=== PATIENT | male | born 1990 | race African-American/Black ===

== ENCOUNTER → 2022-11-07 | Outpatient (CLI) | payer OTHER | LOC: M RAD 14:10 | PROVIDERS: ATTEND Nurse Practitioner Family | DX: E05.00 Thyrotoxicosis with diffuse goiter without thyrotoxic crisis or storm (principal); Z53.9 Procedure and treatment not carried out, unspecified reason ==

== ENCOUNTER → 2022-11-14 | Outpatient (CLI) | payer OTHER | LOC: M RAD 06:57 | PROVIDERS: ATTEND Nurse Practitioner Family | DX: E05.00 Thyrotoxicosis with diffuse goiter without thyrotoxic crisis or storm (principal) | CPT/HCPCS: 78012; A9516 ==

== ENCOUNTER 2023-01-09 10:47 | Emergency (ER) | payer OTHER ==
[~2023-01-09] VITALS: Ht 180.3 cm; Wt 87.6 kg
[2023-01-09] MEDS ORDERED: CETI10CH PO (10:59)
[2023-01-09] MEDS ORDERED: METH10TA PO (10:59)
[2023-01-09] MEDS ORDERED: LIDOCAINE VISCOUS 2% SOLN 15ML UDC SS ONE (12:05)
[2023-01-09 12:24] LABS: BASO % 0.4 % (0.0-1.0); EOS # 0.3 10^3/uL (0.0-0.5); EOS % 5.1 % (0.0-3.0); HEMATOCRIT 45.4 % (42.0-52.0); HEMOGLOBIN 14.2 g/dl (13.5-17.5); LYMPH % 57.5 % (24.0-44.0); MEAN CORPUSCULAR HEMOGLOBIN 25.3 pg (27.0-33.0); MEAN CORPUSCULAR HGB CONC 31.3 g/dl (32.0-36.5); MEAN CORPUSCULAR VOLUME 80.8 fl (80.0-96.0); MONO # 0.7 10^3/uL (0.0-0.8); MONO % 13.4 % (2.0-8.0); NEUTROPHILS # 1.2 10^3/uL (1.5-8.5); NEUTROPHILS % 23.4 % (36.0-66.0); PLATELET COUNT, AUTOMATED 303 10^3/uL (150-450); RED BLOOD COUNT 5.62 10^6/uL (4.30-6.10); WHITE BLOOD COUNT 5.3 10^3/uL (4.0-10.0)
[2023-01-09 12:34] LABS: INR 0.9; PROTHROMBIN TIME 12.3 SECONDS (12.5-14.5)
[2023-01-09 12:35] LABS: PARTIAL THROMBOPLASTIN TIME 25.4 SECONDS (24.8-34.2)
[2023-01-09 12:38] LABS: D-DIMER QUANT 496.5 ng/ml (<500)
[2023-01-09 12:49] LABS: THYROXINE (T4) 17.6 UG/DL (4.5-10.9)
[2023-01-09 12:50] LABS: FREE THYROXINE INDEX 10.9 % (1.4-3.8); T UPTAKE 62.2 % (22.5-37.0); THYROID STIMULATING HORMONE 0.008 uIU/ML (0.55-4.78)
[2023-01-09] MEDS ORDERED: METH25TAB PO (13:45)
[2023-01-09 14:45] VITALS: BP 124/78
== END 2023-01-09 14:49 | disposition home or self-care (01) ==
LOC: M ED 10:47
DX: E03.9 Hypothyroidism, unspecified (principal); J02.9 Acute pharyngitis, unspecified; R53.83 Other fatigue; Z79.52 Long term (current) use of systemic steroids; Z79.83 Long term (current) use of bisphosphonates

== ENCOUNTER → 2023-02-13 | Outpatient (CLI) | payer OTHER ==
[~2023-02-13] MED LIST: CETI10CH PO; METH10TA PO; METH25TAB PO
== END ==
LOC: M PLAIMG 10:17
PROVIDERS: ATTEND Otolaryngology
DX: E05.00 Thyrotoxicosis with diffuse goiter without thyrotoxic crisis or storm (principal)

== ENCOUNTER 2023-04-01 11:10 | Inpatient (IN) | payer OTHER ==
[~2023-04-01] VITALS: Ht 180.3 cm; Wt 89.5 kg
[2023-04-01] MEDS ORDERED: LR 1,000 ML IV SCH ×2 (11:15→18:20)
[2023-04-01] MEDS ORDERED: LIDOCAINE W/EPINEPHRINE 1% 20ML VIAL As Ordered ONE (14:02)
[2023-04-01] MEDS ORDERED: LABETALOL 100MG/20ML VIAL As Ordered ONE (16:26)
[2023-04-01] MEDS ORDERED: ROCURONIUM BROMIDE 50MG/5ML VIAL As Ordered ONE ×2 (16:26→18:43)
[2023-04-01] MEDS ORDERED: HYDROmorphone HCL 2MG/ML 1ML VIAL As Ordered ONE (16:26)
[2023-04-01] MEDS ORDERED: propofoL 200 MG/20 ML VIAL As Ordered ONE ×2 (16:26→18:14)
[2023-04-01] MEDS ORDERED: PHENYLephrine 500MCG 5ML (100MCG/ML) SYRINGE As Ordered ONE (16:26)
[2023-04-01] MEDS ORDERED: SUCCINYLCHOLINE 100MG/5ML SYRINGE As Ordered ONE (16:26)
[2023-04-01] MEDS ORDERED: ACETAMINOPHEN 1000MG 100ML IV BAG As Ordered ONE (16:26)
[2023-04-01] MEDS ORDERED: LIDOCAINE 2% 100MG/5ML SDV (FOR ANES.) As Ordered ONE ×2 (16:26→18:43)
[2023-04-01] MEDS ORDERED: METOPROLOL 5 MG/5 ML VIAL As Ordered ONE (16:26)
[2023-04-01] MEDS ORDERED: ONDANSETRON 4MG 2ML VIAL As Ordered ONE (16:26)
[2023-04-01] MEDS ORDERED: fentaNYL 100 MCG/2 ML INJECTION As Ordered ONE ×5 (16:26→20:56)
[2023-04-01] MEDS ORDERED: MIDAZOLAM INJ 2MG/2ML VIAL As Ordered ONE (16:26)
[2023-04-01] MEDS ORDERED: ESMOLOL INJ 100MG/10ML VIAL As Ordered ONE (16:52)
[2023-04-01] MEDS ORDERED: oxyCODONE 5MG TAB PO PRN (18:20)
[2023-04-01] MEDS ORDERED: HYDROMORPHONE HCL 0.5 MG/ 0.5 ML SYRINGE IV PRN ×2 (18:20→20:55)
[2023-04-01] MEDS ORDERED: fentaNYL 100 MCG/2 ML INJECTION IV PRN (18:20)
[2023-04-01] MEDS ORDERED: ONDANSETRON 4MG 2ML VIAL IV PRN ×2 (18:20→20:55)
[2023-04-01] MEDS ORDERED: PROPOFOL 1,000 MG/100 ML VIAL As Ordered ONE (19:11)
[2023-04-01] MEDS ORDERED: propofoL 1,000 MG in IV 1 EA IV SCH (19:15)
[2023-04-01] MEDS ORDERED: ANEXSIA, NORCO 7.5MG/325MG TABLET(HYDROCODONE/APAP) PO PRN (20:55)
[2023-04-01] MEDS: fentaNYL 100 MCG/2 ML INJECTION IV PRN ×2 (20:59→21:17)
[2023-04-01] MEDS ORDERED: MOM 30ML SUSPENSION UDC PO PRN (21:35)
[2023-04-01 21:37] LABS: CALCIUM LEVEL 9.6 MG/DL (8.5-10.1)
[2023-04-01 21:49] LABS: PTH INTACT 12.9 PG/ML (18.5-88.0)
[2023-04-01] MEDS ORDERED: PROMETHAZINE 25MG/ML 1ML VIAL IV PRN (21:50)
[2023-04-01 22:04] LABS: HEMATOCRIT 43.9 % (42.0-52.0); HEMOGLOBIN 14.2 g/dl (13.5-17.5); MEAN CORPUSCULAR HEMOGLOBIN 25.7 pg (27.0-33.0); MEAN CORPUSCULAR HGB CONC 32.3 g/dl (32.0-36.5); MEAN CORPUSCULAR VOLUME 79.5 fl (80.0-96.0); PLATELET COUNT, AUTOMATED 322 10^3/uL (150-450); RED BLOOD COUNT 5.52 10^6/uL (4.30-6.10); WHITE BLOOD COUNT 10.7 10^3/uL (4.0-10.0)
[2023-04-01] MEDS: LR 1,000 ML IV SCH (22:15)
[2023-04-01 22:27] LABS: BLOOD UREA NITROGEN 25 MG/DL (9-23); CARBON DIOXIDE LEVEL 23 MMOL/L (20-31); CHLORIDE LEVEL 107 MMOL/L (98-107); CREATININE FOR GFR 0.89 MG/DL (0.70-1.30); GLOMERULAR FILTRATION RATE > 60.0 (>60); GLUCOSE, FASTING 134 MG/DL (60-100); POTASSIUM SERUM 4.3 MMOL/L (3.5-5.1); SODIUM LEVEL 142 MMOL/L (136-145)
[2023-04-01 22:30] VITALS: BP 143/71; TEMP 98.4; O2SAT 100
[2023-04-01 22:51] VITALS: O2SAT 100
[2023-04-01] MEDS: ceFAZolin SOD 1 GM in D5W MINI-BAG PLUS 50 ML IV SCH (23:34)
[2023-04-02] VITALS (7 sets, daily range): BP systolic 130–144; BP diastolic 61–77; TEMP 98.4–99.3; O2SAT 98–100
[2023-04-02] MEDS: metroNIDAZOLE 500 MG in IV 1 EA IV SCH ×2 (00:32→11:41)
[2023-04-02] MEDS ORDERED: CETI-24 PO (01:44)
[2023-04-02] MEDS ORDERED: HOME MED LIST COMPLETE! XX SCH (01:45)
[2023-04-02] MEDS: ceFAZolin SOD 1 GM in D5W MINI-BAG PLUS 50 ML IV SCH ×3 (06:24→22:42)
[2023-04-02] MEDS: LR 1,000 ML IV SCH (06:55)
[2023-04-02 07:04] LABS: IONIZED CALCIUM 4.6 MG/DL (4.5-5.3)
[2023-04-02 07:10] LABS: HEMATOCRIT 40.3 % (42.0-52.0); HEMOGLOBIN 13.2 g/dl (13.5-17.5); MEAN CORPUSCULAR HEMOGLOBIN 25.8 pg (27.0-33.0); MEAN CORPUSCULAR HGB CONC 32.8 g/dl (32.0-36.5); MEAN CORPUSCULAR VOLUME 78.7 fl (80.0-96.0); PLATELET COUNT, AUTOMATED 290 10^3/uL (150-450); RED BLOOD COUNT 5.12 10^6/uL (4.30-6.10); WHITE BLOOD COUNT 8.3 10^3/uL (4.0-10.0)
[2023-04-02 07:33] LABS: ALBUMIN 3.4 G/DL (3.2-5.2); ALKALINE PHOSPHATASE 82 U/L (46-116); ALT/SGPT 85 U/L (7.0-40); AST/SGOT 82 U/L (<34); BILIRUBIN,TOTAL 0.6 MG/DL (0.3-1.2); BLOOD UREA NITROGEN 18 MG/DL (9-23); CALCIUM LEVEL 10.3 MG/DL (8.5-10.1); CARBON DIOXIDE LEVEL 27 MMOL/L (20-31); CHLORIDE LEVEL 106 MMOL/L (98-107); GLOMERULAR FILTRATION RATE > 60.0 (>60); GLUCOSE, FASTING 114 MG/DL (60-100); MAGNESIUM LEVEL 1.5 MG/DL (1.8-2.4); PTH INTACT 15.5 PG/ML (18.5-88.0); SODIUM LEVEL 140 MMOL/L (136-145)
[2023-04-02] MEDS: PANTOPRAZOLE 40MG VIAL IV SCH (08:31)
[2023-04-02] MEDS: ACETAMINOPHEN TAB 650MG DOSE (2X325MG) PO PRN (20:21)
[2023-04-03] VITALS: BP 141/76; TEMP 98.9; O2SAT 99
[2023-04-03] MEDS: metroNIDAZOLE 500 MG in IV 1 EA IV SCH ×3 (00:41→23:48)
[2023-04-03] MEDS: ACETAMINOPHEN TAB 650MG DOSE (2X325MG) PO PRN ×2 (02:05→13:46)
[2023-04-03 04:27] VITALS: BP 128/58; TEMP 98.2; O2SAT 99
[2023-04-03] MEDS: LEVOTHYROXINE 137MCG TABLET (0.137MG) PO SCH (06:00)
[2023-04-03] MEDS: ceFAZolin SOD 1 GM in D5W MINI-BAG PLUS 50 ML IV SCH ×3 (06:12→21:19)
[2023-04-03 06:15] LABS: HEMATOCRIT 40.5 % (42.0-52.0); HEMOGLOBIN 13.1 g/dl (13.5-17.5); MEAN CORPUSCULAR HEMOGLOBIN 25.8 pg (27.0-33.0); MEAN CORPUSCULAR HGB CONC 32.3 g/dl (32.0-36.5); MEAN CORPUSCULAR VOLUME 79.7 fl (80.0-96.0); PLATELET COUNT, AUTOMATED 256 10^3/uL (150-450); RED BLOOD COUNT 5.08 10^6/uL (4.30-6.10); WHITE BLOOD COUNT 9.3 10^3/uL (4.0-10.0)
[2023-04-03 06:40] LABS: ALBUMIN 3.2 G/DL (3.2-5.2); ALKALINE PHOSPHATASE 75 U/L (46-116); ALT/SGPT 81 U/L (7.0-40); AST/SGOT 92 U/L (<34); BILIRUBIN,TOTAL 0.7 MG/DL (0.3-1.2); BLOOD UREA NITROGEN 10 MG/DL (9-23); CALCIUM LEVEL 10.7 MG/DL (8.5-10.1); CARBON DIOXIDE LEVEL 30 MMOL/L (20-31); CHLORIDE LEVEL 103 MMOL/L (98-107); CREATININE FOR GFR 0.58 MG/DL (0.70-1.30); GLOMERULAR FILTRATION RATE > 60.0 (>60); GLUCOSE, FASTING 103 MG/DL (60-100); POTASSIUM SERUM 4.2 MMOL/L (3.5-5.1); PTH INTACT 8.3 PG/ML (18.5-88.0); SODIUM LEVEL 139 MMOL/L (136-145); TOTAL PROTEIN 5.8 G/DL (5.7-8.2)
[2023-04-03 07:41] LABS: MAGNESIUM LEVEL 1.5 MG/DL (1.8-2.4)
[2023-04-03 08:00] VITALS: TEMP 98.7; O2SAT 99
[2023-04-03] MEDS ORDERED: BACITRACIN OINTMENT 30GM TUBE TOP STA (08:11)
[2023-04-03] MEDS: MAGNESIUM OXIDE 400MG TAB (MAG-OX) PO SCH ×2 (09:00→21:18)
[2023-04-03] MEDS: BACITRACIN OINTMENT 30GM TUBE TOP SCH ×2 (09:03→21:19)
[2023-04-03] MEDS: PANTOPRAZOLE 40MG VIAL IV SCH (09:06)
[2023-04-03 11:22] VITALS: BP 131/74; TEMP 99.7
[2023-04-03] MEDS: NS 1,000 ML IV SCH (11:49)
[2023-04-03] MEDS: ENOXAPARIN 40MG/0.4ML SYRINGE (J1650 PER 10MG) SC SCH (11:50)
[2023-04-03] MEDS ORDERED: MAG SULF 1GM/100ML (MAG RUN) 1 GM in IV 1 EA IV ONE (12:00)
[2023-04-03 14:50] LABS: ALBUMIN 3.2 G/DL (3.2-5.2); ALKALINE PHOSPHATASE 77 U/L (46-116); ALT/SGPT 78 U/L (7.0-40); AST/SGOT 82 U/L (<34); BILIRUBIN,TOTAL 0.6 MG/DL (0.3-1.2); BLOOD UREA NITROGEN 11 MG/DL (9-23); CALCIUM LEVEL 10.6 MG/DL (8.5-10.1); CARBON DIOXIDE LEVEL 30 MMOL/L (20-31); CHLORIDE LEVEL 102 MMOL/L (98-107); GLOMERULAR FILTRATION RATE > 60.0 (>60); GLUCOSE, FASTING 121 MG/DL (60-100); PHOSPHORUS LEVEL 3.9 MG/DL (2.5-4.9); POTASSIUM SERUM 4.1 MMOL/L (3.5-5.1); SODIUM LEVEL 138 MMOL/L (136-145)
[2023-04-03 16:00] VITALS: BP 116/58; TEMP 99.1; O2SAT 99
[2023-04-03 18:18] LABS: ALBUMIN 3.2 G/DL (3.2-5.2); ALKALINE PHOSPHATASE 78 U/L (46-116); ALT/SGPT 64 U/L (7.0-40); AST/SGOT 49 U/L (<34); BILIRUBIN,TOTAL 0.5 MG/DL (0.3-1.2); BLOOD UREA NITROGEN 11 MG/DL (9-23); CALCIUM LEVEL 9.6 MG/DL (8.5-10.1); CARBON DIOXIDE LEVEL 29 MMOL/L (20-31); CHLORIDE LEVEL 103 MMOL/L (98-107); CREATININE FOR GFR 0.59 MG/DL (0.70-1.30); GLOMERULAR FILTRATION RATE > 60.0 (>60); GLUCOSE, FASTING 123 MG/DL (60-100); POTASSIUM SERUM 3.9 MMOL/L (3.5-5.1); SODIUM LEVEL 139 MMOL/L (136-145)
[2023-04-03 20:44] VITALS: BP 140/76; TEMP 99.6; O2SAT 98
[2023-04-04] VITALS (7 sets, daily range): BP systolic 139–152; BP diastolic 66–81; TEMP 98.3–99.2; O2SAT 94–99
[2023-04-04] MEDS: NS 1,000 ML IV SCH ×4 (01:45→22:52)
[2023-04-04] MEDS: ACETAMINOPHEN TAB 650MG DOSE (2X325MG) PO PRN (03:53)
[2023-04-04] MEDS: LEVOTHYROXINE 137MCG TABLET (0.137MG) PO SCH (06:25)
[2023-04-04] MEDS: ceFAZolin SOD 1 GM in D5W MINI-BAG PLUS 50 ML IV SCH ×3 (06:26→21:57)
[2023-04-04] MEDS: ENOXAPARIN 40MG/0.4ML SYRINGE (J1650 PER 10MG) SC SCH (10:04)
[2023-04-04] MEDS: BACITRACIN OINTMENT 30GM TUBE TOP SCH ×2 (10:04→20:31)
[2023-04-04] MEDS: MAGNESIUM OXIDE 400MG TAB (MAG-OX) PO SCH ×2 (10:04→20:31)
[2023-04-04] MEDS: metroNIDAZOLE 500 MG in IV 1 EA IV SCH ×2 (10:04→22:52)
[2023-04-04] MEDS: RAMELTEON 8 MG TAB (ROZEREM) PO SCH (20:30)
[2023-04-05] VITALS (8 sets, daily range): BP systolic 123–138; BP diastolic 69–93; TEMP 96.9–99; O2SAT 96–100
[2023-04-05 04:59] LABS: HEMATOCRIT 40.2 % (42.0-52.0); HEMOGLOBIN 13.2 g/dl (13.5-17.5); MEAN CORPUSCULAR HGB CONC 32.8 g/dl (32.0-36.5); MEAN CORPUSCULAR VOLUME 79.1 fl (80.0-96.0); PLATELET COUNT, AUTOMATED 256 10^3/uL (150-450); RED BLOOD COUNT 5.08 10^6/uL (4.30-6.10); WHITE BLOOD COUNT 6.4 10^3/uL (4.0-10.0)
[2023-04-05 05:27] LABS: ALKALINE PHOSPHATASE 74 U/L (46-116); ALT/SGPT 61 U/L (7.0-40); AST/SGOT 37 U/L (<34); BILIRUBIN,TOTAL 0.4 MG/DL (0.3-1.2); BLOOD UREA NITROGEN 14 MG/DL (9-23); CALCIUM LEVEL 9.5 MG/DL (8.5-10.1); CARBON DIOXIDE LEVEL 28 MMOL/L (20-31); CHLORIDE LEVEL 104 MMOL/L (98-107); CREATININE FOR GFR 0.61 MG/DL (0.70-1.30); GLOMERULAR FILTRATION RATE > 60.0 (>60); GLUCOSE, FASTING 119 MG/DL (60-100); MAGNESIUM LEVEL 1.5 MG/DL (1.8-2.4); POTASSIUM SERUM 3.9 MMOL/L (3.5-5.1); SODIUM LEVEL 139 MMOL/L (136-145); TOTAL PROTEIN 5.8 G/DL (5.7-8.2)
[2023-04-05] MEDS: LEVOTHYROXINE 137MCG TABLET (0.137MG) PO SCH (05:37)
[2023-04-05] MEDS: ceFAZolin SOD 1 GM in D5W MINI-BAG PLUS 50 ML IV SCH ×2 (05:37→14:25)
[2023-04-05] MEDS ORDERED: MAG SULF 1GM/100ML (MAG RUN) 1 GM in IV 1 EA IV ONE (06:00)
[2023-04-05] MEDS: ENOXAPARIN 40MG/0.4ML SYRINGE (J1650 PER 10MG) SC SCH (08:38)
[2023-04-05] MEDS: MAGNESIUM OXIDE 400MG TAB (MAG-OX) PO SCH ×2 (08:38→22:35)
[2023-04-05] MEDS: BACITRACIN OINTMENT 30GM TUBE TOP SCH ×2 (08:38→22:36)
[2023-04-05] MEDS: metroNIDAZOLE 500 MG in IV 1 EA IV SCH (12:21)
[2023-04-05] MEDS: RAMELTEON 8 MG TAB (ROZEREM) PO SCH (22:35)
[2023-04-05] MEDS: AUGMENTIN 500MG TAB PO SCH (22:35)
[2023-04-06 04:37] VITALS: BP 140/70; TEMP 97.9; O2SAT 96
[2023-04-06] MEDS: LEVOTHYROXINE 137MCG TABLET (0.137MG) PO SCH (05:47)
[2023-04-06 06:02] LABS: HEMATOCRIT 42.4 % (42.0-52.0); HEMOGLOBIN 13.8 g/dl (13.5-17.5); MEAN CORPUSCULAR HEMOGLOBIN 25.7 pg (27.0-33.0); MEAN CORPUSCULAR HGB CONC 32.5 g/dl (32.0-36.5); PLATELET COUNT, AUTOMATED 301 10^3/uL (150-450); RED BLOOD COUNT 5.37 10^6/uL (4.30-6.10); WHITE BLOOD COUNT 6.9 10^3/uL (4.0-10.0)
[2023-04-06 06:22] LABS: ALBUMIN 3.3 G/DL (3.2-5.2); ALKALINE PHOSPHATASE 78 U/L (46-116); ALT/SGPT 84 U/L (7.0-40); AST/SGOT 56 U/L (<34); BILIRUBIN,TOTAL 0.5 MG/DL (0.3-1.2); BLOOD UREA NITROGEN 11 MG/DL (9-23); CALCIUM LEVEL 9.7 MG/DL (8.5-10.1); CARBON DIOXIDE LEVEL 26 MMOL/L (20-31); CHLORIDE LEVEL 105 MMOL/L (98-107); CREATININE FOR GFR 0.67 MG/DL (0.70-1.30); GLOMERULAR FILTRATION RATE > 60.0 (>60); GLUCOSE, FASTING 103 MG/DL (60-100); POTASSIUM SERUM 3.9 MMOL/L (3.5-5.1); SODIUM LEVEL 141 MMOL/L (136-145); TOTAL PROTEIN 6.1 G/DL (5.7-8.2)
[2023-04-06 07:48] VITALS: BP 132/76; TEMP 97.3; O2SAT 99
[2023-04-06] MEDS: AUGMENTIN 500MG TAB PO SCH ×2 (09:05→20:53)
[2023-04-06] MEDS: BACITRACIN OINTMENT 30GM TUBE TOP SCH ×2 (09:06→20:53)
[2023-04-06] MEDS: ENOXAPARIN 40MG/0.4ML SYRINGE (J1650 PER 10MG) SC SCH (09:06)
[2023-04-06] MEDS: MAGNESIUM OXIDE 400MG TAB (MAG-OX) PO SCH ×2 (09:06→20:53)
[2023-04-06 16:51] VITALS: BP 144/78; TEMP 98.1; O2SAT 98
[2023-04-06 19:27] VITALS: BP 128/59; TEMP 97.7; O2SAT 99
[2023-04-06] MEDS: RAMELTEON 8 MG TAB (ROZEREM) PO SCH (20:53)
[2023-04-06 23:10] VITALS: BP 141/81; TEMP 97.9; O2SAT 100
[2023-04-07 03:26] VITALS: BP 103/55; TEMP 97.5; O2SAT 98
[2023-04-07 05:44] LABS: HEMATOCRIT 46.1 % (42.0-52.0); HEMOGLOBIN 14.9 g/dl (13.5-17.5); MEAN CORPUSCULAR HEMOGLOBIN 25.5 pg (27.0-33.0); MEAN CORPUSCULAR HGB CONC 32.3 g/dl (32.0-36.5); MEAN CORPUSCULAR VOLUME 78.8 fl (80.0-96.0); PLATELET COUNT, AUTOMATED 331 10^3/uL (150-450); RED BLOOD COUNT 5.85 10^6/uL (4.30-6.10); WHITE BLOOD COUNT 7.2 10^3/uL (4.0-10.0)
[2023-04-07] MEDS: LEVOTHYROXINE 137MCG TABLET (0.137MG) PO SCH (06:04)
[2023-04-07 06:14] LABS: ALBUMIN 3.7 G/DL (3.2-5.2); ALKALINE PHOSPHATASE 89 U/L (46-116); ALT/SGPT 150 U/L (7.0-40); AST/SGOT 102 U/L (<34); BILIRUBIN,TOTAL 0.4 MG/DL (0.3-1.2); BLOOD UREA NITROGEN 12 MG/DL (9-23); CALCIUM LEVEL 10.3 MG/DL (8.5-10.1); CARBON DIOXIDE LEVEL 24 MMOL/L (20-31); CHLORIDE LEVEL 106 MMOL/L (98-107); CREATININE FOR GFR 0.68 MG/DL (0.70-1.30); GLOMERULAR FILTRATION RATE > 60.0 (>60); GLUCOSE, FASTING 103 MG/DL (60-100); MAGNESIUM LEVEL 1.7 MG/DL (1.8-2.4); POTASSIUM SERUM 3.9 MMOL/L (3.5-5.1); SODIUM LEVEL 142 MMOL/L (136-145)
[2023-04-07 07:30] VITALS: BP 132/81; TEMP 97.2; O2SAT 100
[2023-04-07] MEDS ORDERED: MAG SULF 1GM/100ML (MAG RUN) 1 GM in IV 1 EA IV ONE (08:00)
[2023-04-07] MEDS: AUGMENTIN 500MG TAB PO SCH ×2 (09:19→20:50)
[2023-04-07] MEDS: MAGNESIUM OXIDE 400MG TAB (MAG-OX) PO SCH ×3 (09:20→20:50)
[2023-04-07] MEDS: BACITRACIN OINTMENT 30GM TUBE TOP SCH ×2 (09:20→20:51)
[2023-04-07] MEDS: ENOXAPARIN 40MG/0.4ML SYRINGE (J1650 PER 10MG) SC SCH (09:20)
[2023-04-07 11:34] VITALS: BP 129/80; TEMP 97.3; O2SAT 99
[2023-04-07 15:43] VITALS: BP 123/81; TEMP 97.5; O2SAT 98
[2023-04-07 19:35] VITALS: BP 120/66; TEMP 97.7; O2SAT 98
[2023-04-07] MEDS: RAMELTEON 8 MG TAB (ROZEREM) PO SCH (20:50)
[2023-04-07 23:33] VITALS: BP 132/63; TEMP 97.5; O2SAT 98
[2023-04-08 03:37] VITALS: BP 131/73; TEMP 96.9; O2SAT 97
[2023-04-08] MEDS: LEVOTHYROXINE 137MCG TABLET (0.137MG) PO SCH (06:09)
[2023-04-08 07:18] LABS: HEMOGLOBIN 14.2 g/dl (13.5-17.5); MEAN CORPUSCULAR HEMOGLOBIN 25.6 pg (27.0-33.0); MEAN CORPUSCULAR HGB CONC 32.3 g/dl (32.0-36.5); MEAN CORPUSCULAR VOLUME 79.3 fl (80.0-96.0); PLATELET COUNT, AUTOMATED 322 10^3/uL (150-450); RED BLOOD COUNT 5.55 10^6/uL (4.30-6.10); WHITE BLOOD COUNT 7.8 10^3/uL (4.0-10.0)
[2023-04-08 07:48] LABS: ALBUMIN 3.3 G/DL (3.2-5.2); ALKALINE PHOSPHATASE 81 U/L (46-116); ALT/SGPT 138 U/L (7.0-40); AST/SGOT 67 U/L (<34); BILIRUBIN,TOTAL 0.3 MG/DL (0.3-1.2); BLOOD UREA NITROGEN 11 MG/DL (9-23); CALCIUM LEVEL 10.5 MG/DL (8.5-10.1); CARBON DIOXIDE LEVEL 25 MMOL/L (20-31); CHLORIDE LEVEL 106 MMOL/L (98-107); CREATININE FOR GFR 0.67 MG/DL (0.70-1.30); GLOMERULAR FILTRATION RATE > 60.0 (>60); GLUCOSE, FASTING 90 MG/DL (60-100); POTASSIUM SERUM 3.9 MMOL/L (3.5-5.1); SODIUM LEVEL 140 MMOL/L (136-145); TOTAL PROTEIN 6.5 G/DL (5.7-8.2)
[2023-04-08 08:01] VITALS: BP 140/83; TEMP 97.1; O2SAT 99
[2023-04-08] MEDS: ENOXAPARIN 40MG/0.4ML SYRINGE (J1650 PER 10MG) SC SCH (09:00)
[2023-04-08] MEDS: AUGMENTIN 500MG TAB PO SCH (09:22)
[2023-04-08] MEDS: MAGNESIUM OXIDE 400MG TAB (MAG-OX) PO SCH (09:22)
[2023-04-08] MEDS ORDERED: BACITRACIN OINTMENT 30GM TUBE TOP SCH (09:27)
[2023-04-08 11:52] VITALS: BP 142/81; TEMP 97.6; O2SAT 98
[2023-04-08] MEDS ORDERED: SYNT137T7 PO (14:33)
[2023-04-08] MEDS ORDERED: MAGN400T2 PO (14:33)
[2023-04-08] MEDS ORDERED: ACET1TAB55 PO (14:33)
[2023-04-08] MEDS ORDERED: AUGM500T34 PO (14:33)
[2023-04-08] MEDS ORDERED: PROB250C PO (14:33)
== END 2023-04-08 15:33 | disposition home health service (06) | DRG 13 ==
LOC: M SDC 11:10 → M ED INP 21:03 → M ICU 22:13 → M PCU 04-05 17:16
PROVIDERS: ADMIT Family Medicine; ATTEND Internal Medicine
PROC: 0GTK0ZZ Resection of Thyroid Gland, Open Approach (ICD-10-PCS; 2023-04-01)
PROC: 0B110F4 Bypass Trachea to Cutaneous with Tracheostomy Device, Open Approach (ICD-10-PCS; principal; 2023-04-01 12:50)
DX: E05.00 Thyrotoxicosis with diffuse goiter without thyrotoxic crisis or storm (principal); K21.9 Gastro-esophageal reflux disease without esophagitis; F41.9 Anxiety disorder, unspecified; F32.A Depression, unspecified; E83.42 Hypomagnesemia; E83.51 Hypocalcemia; J38.3 Other diseases of vocal cords; Z79.899 Other long term (current) drug therapy; R06.1 Stridor; F17.200 Nicotine dependence, unspecified, uncomplicated; L30.9 Dermatitis, unspecified; E89.0 Postprocedural hypothyroidism

== ENCOUNTER → 2023-04-25 | Outpatient (CLI) | payer OTHER ==
[~2023-04-25] MED LIST changes: +ACET1TAB55 PO; +AUGM500T34 PO; +CETI-24 PO; +MAGN400T2 PO; +PROB250C PO; +SYNT137T7 PO
[2023-04-25 17:15] LABS: THYROID STIMULATING HORMONE 0.008 uIU/ML (0.55-4.78)
[2023-04-25 17:16] LABS: FREE T4 0.85 NG/DL (0.89-1.76)
== END ==
LOC: M LAB 15:50
PROVIDERS: ATTEND Otolaryngology
DX: R53.83 Other fatigue (principal)

== ENCOUNTER → 2023-05-01 | Outpatient (CLI) | payer OTHER | LOC: M LAB 11:35 | PROVIDERS: ATTEND Otolaryngology | DX: J95.00 Unspecified tracheostomy complication (principal) ==

== ENCOUNTER → 2024-02-12 | Outpatient (CLI) | payer OTHER | LOC: M LAB 15:43 | PROVIDERS: ATTEND Otolaryngology | DX: E05.00 Thyrotoxicosis with diffuse goiter without thyrotoxic crisis or storm (principal) ==